=== PATIENT | female | born 1980 | race Caucasian/White ===

== ENCOUNTER 2023-01-19 15:59 | Outpatient (CLI) | payer OTHER, SELFPAY | END 2023-01-19 16:00 | disposition home or self-care (01) | PROVIDERS: PCP Family Medicine; Visit Provider Family Medicine | DX: M54.30 Sciatica, unspecified side (principal) | CPT/HCPCS: 99199 ==

== ENCOUNTER 2023-01-25 16:56 | Outpatient (RCR) | payer OTHER, SELFPAY ==
--- NOTE | 2023-02-01 16:47 | OPREHPOC ---
Outpatient Therapy Plan of Care This is a Multidisciplinary Plan of Care that may contain components documented by all disciplines (PT, OT, and ST.) PT Problem 1 PT Problem #1 Knowledge Deficit PT Goal 1 Goal 1. independent and compliant with HEP to improve tolerance for continued skilled PT and exercises Target Visit 4 PT Problem 2 PT Problem #2 Pain PT Goal 1 Goal 1. decrease pain at worst in the L LE to 3/10 or less 2. reduction of all L LE to the L buttock and no further down the L LE. Target Visit 9 PT Problem 3 PT Problem #3 Impaired Strength PT Goal 1 Goal 1. 5/5 bilateral hip strength 2. 4/5 or better core strength 3. plank for 1 minute on elbows without postural loss Target Visit 9 PT Problem 4 PT Problem #4 Impaired Functional Mobil PT Goal 1 Goal 1. LEFS to display less than 20% functional deficits 2. patient to sit through work day without increased symptoms 3. patient to squat and safely lift 40lbs from floor to improve functional lifting ability. Target Visit 9
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
--- NOTE | 2023-02-01 17:14 | PCPTNOTE ---
patient was a no call no show for her physical therapy appointment today. JOCELYN
--- NOTE | 2023-02-28 17:43 | OPREHPOC ---
Outpatient Therapy Plan of Care This is a Multidisciplinary Plan of Care that may contain components documented by all disciplines (PT, OT, and ST.) PT Problem 1 PT Problem #1 Knowledge Deficit PT Goal 1 Goal 1. independent and compliant with HEP to improve tolerance for continued skilled PT and exercises Target Visit 4 Progress Met PT Problem 2 PT Problem #2 Pain PT Goal 1 Goal 1. decrease pain at worst in the L LE to 3/10 or less 2. reduction of all L LE to the L buttock and no further down the L LE. Target Visit 9 Progress Not Met PT Problem 3 PT Problem #3 Impaired Strength PT Goal 1 Goal 1. 5/5 bilateral hip strength 2. 4/5 or better core strength 3. plank for 1 minute on elbows without postural loss Target Visit 9 Progress Not Met PT Problem 4 PT Problem #4 Impaired Functional Mobil PT Goal 1 Goal 1. LEFS to display less than 20% functional deficits 2. patient to sit through work day without increased symptoms 3. patient to squat and safely lift 40lbs from floor to improve functional lifting ability. Target Visit 9 Progress Not Met
--- NOTE | 2023-02-28 17:44 | PTOPDC ---
Assessment and note entered by Enma Arredondo DPT Evaluation Information Assessment Status Re-evaluation Diagnosis L knee pain, sciatica Onset 01/19/23 Subjective Information Patient reports that since starting PT she has not noticed any improvements in pain. She reports she is feeling about the same with all house hold activities. She reports she has been independent with HEP. Reported Pain Level Pain Score 5,3: Self Report Assessment PT Clinical Summary Patient was seen for 9 visits of skilled PT wtih limited progress towards goals. Patient continues to have low back and LE pain with house hold tasks , siitting at work and ambulation for long periods of time. Patient demonstrated independence with HEP. Recommend patient follow up with MD regarding MRI for further plan of care. Plan of Care PT Services Indicated No
== END 2023-02-28 15:27 | disposition home or self-care (01) ==
LOC: CHSPT 16:56
PROVIDERS: PCP Family Medicine; Visit Provider Family Medicine
DX: M54.30 Sciatica, unspecified side (principal); M25.562 Pain in left knee
CPT/HCPCS: 97014; 97110; 97112; 97140; 97150; 97161; G0283

== ENCOUNTER 2023-02-13 14:29 | Outpatient (NON) | payer OTHER, SELFPAY | END 2023-02-13 14:30 | disposition home or self-care (01) | PROVIDERS: Visit Provider Family Medicine | DX: D36.10 Benign neoplasm of peripheral nerves and autonomic nervous system, unspecified (principal) | CPT/HCPCS: 88305; 88342 ==

== ENCOUNTER 2023-04-22 07:28 | Outpatient (CLI) | payer OTHER, SELFPAY ==
--- NOTE | ~2023-04-22 | MR_ITS ---
EXAMINATION: MR lumbar spine wo con DATE: 04/22/2023 08:12 INDICATION: Sciatica. Pain down left leg. TECHNIQUE: Magnetic resonance imaging (MRI) of the lumbar spine was performed without intravenous con trast. Sequences included sagittal T2-weighted FSE, sagittal T2-weighted FS FSE, sagittal T1-weighted FSE, and axial T2-weighted FSE. COMPARISON: Lumbar spine radiograph 11/18/2005 FINDINGS: There is 7 degrees levocurvature of lumbar spine. Vertebral body heights are normal. There are hemangiomas in T12, L1, and L4 vertebral bodies. There is mildly decreased disc height at L4-L5. The distal spinal cord signal intensity is normal. The conus medullaris is at L1. The following disc levels are specifically discussed: L1-L2: The disc does not extend beyond the endplate margin. There is mild left facet joint osteoarthr itis. There is no neural foraminal stenosis. There is no central canal stenosis. L2-L3: The disc does not extend beyond the endplate margin. There is mild bilateral facet joint osteo arthritis. There is no neural foraminal stenosis. There is no central canal stenosis. L3-L4: The disc does not extend beyond the endplate margin. There is mild bilateral facet joint osteo arthritis. There is no neural foraminal stenosis. There is no central canal stenosis. L4-L5: The disc is bulging. There is moderate bilateral facet joint osteoarthritis. There is mild johanny ateral neural foraminal stenosis. There is mild central canal stenosis. L5-S1: The disc does not extend beyond the endplate margin. There is mild bilateral facet joint osteo arthritis. There is no neural foraminal stenosis. There is no central canal stenosis. IMPRESSION: 1. Mild lumbar spondylosis. Reviewed, dictated and finalized at location A. [facility] IMPRESSION: 1. Mild lumbar spondylosis.
== END 2023-04-22 07:29 | disposition home or self-care (01) ==
LOC: CHSIMG 07:29
PROVIDERS: PCP Family Medicine; Visit Provider Family Medicine
DX: M54.30 Sciatica, unspecified side (principal); M43.06 Spondylolysis, lumbar region
CPT/HCPCS: 72148

== ENCOUNTER 2025-01-22 18:21 | Outpatient (CLI) | payer OTHER, SELFPAY ==
--- OUTSIDE RECORDS SUMMARY | 2018-02-13 10:30 | XMS_ITS | Continuity of Care Document ---
Author Organization [facility] Address [address] [place] [address] Phone Care Team Providers Care Benefits Manager Name Role Phone Natalia Farnsworth MD Unavailable [...] Provider Providers Copied on Encounter DISABILITY EXAMINATION [facility], [address], [place], [address], tel:[phone] [facility] [place] [place] INDIRA MIGUEL HANDS 05/05/17 (chief complaint) Body mass index (BMI) 29.0-29.9, adultLeft carpal tunnel syndromeRight carpal tunnel syndrome 8 Daja Fisher. [address] [place], [place], [id number] . tel:[phone] Family History Family Member Type Diagnosis Age At Onset Son Problem (finding) Alive and well Payers Payer name Insurance type Covered libertarian ID Authoriza tion(s) No Information Social History [...] For Visit From encounter dated '02/13/2018 15:30'. [facility] INDIRA MIGUEL HANDS 05/05/17 (chief complaint) Reason For Referral Reason For Referral No Information History Of Present Illness Encounter Date Complaint History Of Prese nt Illness [facility] INDIRA MIGUEL HANDS 05/05/17 Functional Status [...]
--- OUTSIDE RECORDS SUMMARY | 2025-01-22 18:25 | XMS_ITS | Clinical Summary ---
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 Gender Identity Not on file Sexual Orientation Not on file Plan of Treatment Health Maintenance Due Date Last Done Comments Hepatitis C Virus (HCV) Screening 1979 TdaP Immunization 1979 Hepatitis B Immunization (1 of 3 - 19+ 3-dose series) 1998 Pap Smear 01/09/2000 Human Papillomavirus (HPV) Immunization (1 - 3-dose SCDM series) 2006 Cervical Cancer Screening (CCS) 2009 HPV/Cotest 2009 Cologuard 01/09/2024 Colonoscopy 01/09/2024 Colorectal Cancer Screening 01/09/2024 Immunochemical Fecal Occult Blood 01/09/2024 SARS-COV-2 Immunization ( season) 2024 Influenza Immunization (#1) 2025 Respiratory Syncytial Virus (RSV) Immunization (Adult) (1 - 1-dose 75+ series) 2054 Meningococcal Immunization (ACWY) Aged Out No longer eligible based on patient's age to complete this topic Pneumococcal Immunization Combined Aged Out No longer eligible based on patient's age to complete this topic Rotavirus Immunization Aged Out No lo nger eligible based on patient's age to complete this topic
--- OUTSIDE RECORDS SUMMARY | 2025-01-22 18:25 | XMS_ITS | Clinical Summary ---
Author Organization [facility] Address [address] [place] [address] Care Team Providers Care Pull Up Hand Name Role Phone Jenna Cook RICH Unavailable [phone] Chepe Paulino DO Primary Care Provider Allergies Active Allergy Reactions Criticality Noted Date Comments Promethazine Hives Medium Medications ascorbic acid (VITAMIN C) 100 mg tablet Take 1 tablet (100 mg total) by mouth daily Active acetaminophen (TYLENOL) 500 mg tablet Take 2 tablets (1,000 mg total) by mouth every 6 (six) hours as needed for pain Active SUMAtriptan (IMITREX) 100 mg tablet once as needed 10/16/2019 Active cyanocobalamin (Vitamin B-12) 100 mcg tabletIndicatio ns:Prevention of Vitamin B12 Deficiency Take 1 tablet (100 mcg total) by mouth daily Active biotin 1 mg capsule Take by mouth Active diclofenac (CATAFLAM) 50 mg tablet Take 1 tablet (50 mg total) by mouth 2 (two) times a day 08/08/2023 Active folic acid (FOLVITE) 1 mg tablet Take 1 tablet (1 mg total) by mouth daily 30 tablet 5 08/17/2023 Active methotrexate 2.5 mg tabletIndicatio ns:Rheumatoid Arthritis Take 6 tablets (15 mg total) by mouth every 7 days 72 tablet 08/08/2024 Active Active Problems Problem Noted Date Diagnosed Date Mass of right side of neck 03/13/2021 Dysphonia 03/13/2021 Carpal tunnel syndrome of right wrist 04/11/2018 Overview (04/11/2018): Added automatically from request for surgery [id number] Carpal tunnel syndrome of left wrist 04/05/2018 Overview (04/05/2018): Added automatically from request for surgery [id number] Migraine headache 10/11/2012 Cervical disc disorder with myelopathy 3 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 10/11/2012 Surgical History Surgery Date Site/Laterality Comments CARPAL TUNNEL RELEASE 06/05/2017 - 06/04/2018 Bilateral CERVICAL SPINE SURGERY 06/05/2012 - 06/04/2013 disc replacement MOLE REMOVAL 03/05/2023 - 04/04/2023 BREAST BIOPSY 07/31/2024 Left Medical History Medical History Date Comments Anxiety Cervical disc disease Lumbar stenosis Fibromyalgia, primary Family History Medical History Relation Name Comments Arthritis Father Cancer Father Leukemia Father Arthritis Mother Kidney disease Mother Family histor y of kidney disease - (Added by TW Conv) Cancer Other 1 Cancer - (Added by TW Conv) Diabetes Other 2 Diabetes Mellit us - (Added by TW Conv) Relation Name Status Comments Father Alive Mother Alive Other 1 Other 2 Social History Tobacco Use Types Packs/Day Years Used Date Smoking Tobacco: Former Cigarettes 0.3 1 1 8 - 1998 Passive Smoke Exposure: Never Smokeless Tobacco: Never Tobacco Cessation:Counseling Given: Not Answered Alcohol Use Standard Drinks/Week Comments Yes 2 (1 standard drink = 0.6 oz pur e alcohol) Comments Unknown Sex and Gender Information Value Date Recorded Sex Assigned at Not on file Legal Sex Female 1:20 AM EXHIBITIONS AND COLLECTIONS MANAGER Gender Identity Female 07/16/2024 8:49 AM EXHIBITIONS AND COLLECTIONS MANAGER Sexual Orientation Choose not to disclose 2024 8:49 AM EXHIBITIONS AND COLLECTIONS MANAGER Obstetrics History Last Filed Vital Signs Vital Sign Reading Time Taken Comments Blood Pressure 120/80 08/08/2024 8:08 AM EXHIBITIONS AND COLLECTIONS MANAGER Pulse 71 08/08/2024 8:08 AM EXHIBITIONS AND COLLECTIONS MANAGER Temperature 36.7 C (98 F) 08/08/2024 8:08 AM EXHIBITIONS AND COLLECTIONS MANAGER Respiratory Rate 17 03/12/2021 1:48 PM CDT Oxygen Saturation 97% 08/08/2024 8:08 AM EXHIBITIONS AND COLLECTIONS MANAGER Inhaled Oxygen Concentration - - Weight 88.9 kg (196 lb) 08/08/2024 8:08 AM EXHIBITIONS AND COLLECTIONS MANAGER Height 172.7 cm (5' 8) 08/08/2024 8:08 AM EXHIBITIONS AND COLLECTIONS MANAGER Body Mass Index 29.8 08/08/2024 8:08 AM EXHIBITIONS AND COLLECTIONS MANAGER Plan of Treatment Health Maintenance Due Date Last Done Comments Cervical Cancer Screening 1979 Colon Cancer Screening-Colonoscopy 1979 Depression Screening 1979 Hepatitis C Screening 1979 DTaP/Tdap/Td Vaccine (1 - Tdap) 1990 Hepatitis B Screening 1997 Regular Well Visit/Exam 18-64 1997 Pneumococcal vaccine <65 (1 of 2 - PCV) 1998 Zoster Vaccine (1 of 2) 1998 Covid-19 Vaccine (3 - Pfizer risk series) 09/17/2020 08/20/2020, 07/30/2020 Influenza Vaccine (#1) 2025 Breast Cancer Screening-Mammogram 07/19/2025 07/19/2024, 07/16/2019, 06/13/2019 HPV Vaccines Aged Out No longer eligi ble based on patient's age to complete this topic Medical Devices Implanted Type Area Chemical Analytical Sampler Device Identifier Shelf Expiration Date Model / Serial / Lot [employer] Peripheral V[employer] Senomark Ultracor Bard 14ga 10cm Rigid Needle 1 Microfiber Pad [id number] - [id number] Implanted:Qty: 1 on 07/31/2024 at [facility] [employer] [id number] / / Procedures Procedure Name Priority Date/Time Associated Diagnosis Comments DIAGNOSTIC MAMMOGRAM BILATERAL W GERALD Schedule Routine, Read Routine (OP Routine) 07/19/2024 10:17 AM EXHIBITIONS AND COLLECTIONS MANAGER Mass of left breast, unspecified quadrant from Last 3 Months or Most Recently Relevant to Health Maintenance Results * (ABNORMAL) Diagnostic Mammogram Bilateral W Gerald (07/19/2024 10:17 AM EXHIBITIONS AND COLLECTIONS MANAGER) Anatomical Region Laterality Modality Breast Bilateral Mammography 07/19/2024 12:2 3 PM EXHIBITIONS AND COLLECTIONS MANAGER Impressions 07/19/2024 12:23 PM EXHIBITIONS AND COLLECTIONS MANAGER 1. Palpable mass in the left breast corresponds to hypoechoic mass seen on ultrasound, new since prior, recommend ultrasound-guided biopsy. 2. Focal asymmetry corresponds to multiple oval masses seen on ultrasound as described above, some representing complicated cysts or fibroadenomas that are probably benign, recommend short-term follow-up. OVERALL FINAL ASSESSMENT: SUSPICIOUS. BI-RADS Category 4B: Moderate suspicion for malignancy. RECOMMENDATION: Ultrasound-guided biopsy of left breast mass at 11:00. Short-term follow-up of focal asymmetry and oval masses in the upper outer quadrant of the right breast as above. Findings and recommendations were communicated to the patient at the time of this examination by Dr. Morin. Nurse navigator will meet with the patient and schedule the biopsy. Electronically signed by: Shabana Morin M.D. Narrative 07/19/2024 12:23 PM EXHIBITIONS AND COLLECTIONS MANAGER EXAMINATION: BILATERAL DIGITAL DIAGNOSTIC MAMMOGRAM INCLUDING CAD AND BILATERAL DIGITAL BREAST TOMOSYNTHESIS; BILATERAL BREAST SONOGRAM HISTORY: Palpable mass left breast COMPARISON: 07/16/2019, 06/13/2019 06/07/2006 TECHNIQUE: Full field digital mammographic views of BOTH breast were performed, including computer aided detection (CAD) and BILATERAL digital breast tomosynthesis (DBT). Directed ultrasound evaluation of BILATERAL breast was performed. BREAST PARENCHYMAL COMPOSITION: The breasts are extremely dense, which lowers the sensitivity of mammography. MAMMOGRAM FINDINGS: Right: Focal asymmetry is seen in the upper outer right breast that includes multiple oval masses, located 8 cm from the nipple, persists in spot images. Left: Oval mass is seen in the left breast at 11:00, 5 cm from the nipple, corresponding to the palpable abnormality, new since prior exam. Asymmetry in the left breast, slightly posterior to the palpable abnormality partly spreads out in spot images. SONOGRAM FINDINGS: Focused ultrasound of the right breast: At 9:00, 9 cm from the nipple there is an oval, parallel, hypoechoic mass with minimal posterior acoustic enhancement and no vascularity measuring 0.9 x 0.7 x 0.4 cm may represent a small fibroadenoma or complicated cyst. Probably benign. At 9:00, 7 cm from the nipple, is an oval, mixed echogenicity, parallel mass with posterior acoustic enhancement and no internal vascularity measuring 1.4 x 0.9 x 1.5 cm, may represent a fibroadenoma. Probably benign. At 9:00, 6 cm from the nipple there is an 0.8 x 0.9 x 0.3 cm cyst that is benign. At 10:00, 7 cm from the nipple there is a 0.9 x 0.9 x 0.5 cm hypoechoic oval mass, parallel with posterior acoustic enhancement and no vascularity, may represent a complicated cyst or fibroadenoma. Probably benign. At 10:00, 7 cm from the nipple, there is a 2nd oval, parallel, hypoechoic mass with posterior acoustic enhancement measuring 1 x 0.6 x 0.8 cm likely representing complicated cyst versus fibroadenoma. Probably benign. At 10:30, 5 cm from the nipple there is a 1.2 x 1.7 x 0.7 cm complicated cyst. Probably benign. At 11:00, 4 cm from the nipple, is an oval, hypo to isoechoic mass with posterior enhancement measuring 0.9 x 0.8 x 2.7 cm likely representing a fibroadenoma. Right axilla is within normal limits. Left breast: At 11:00, 5 cm from the nipple, there is a lobulated, hypoechoic, 4.2 x 3.5 x 1.7 cm mass corresponding to the mammographic finding with an adjacent 0.7 x 0.4 cm mass with similar characteristics located 2 mm separate from the larger mass. Left axilla is within normal limits. Shabana Tim NP IMG MAMMO PROCEDURES Rhiannon l Result from Last 3 Months or Most Recently Relevant to Health Maintenance Insurance [facility] [employer] [facility] H[facility]/PPO Address: [address] [address] [place] [address] ANTHEM ACCESS BLUE ACCESS OOS [facility] [employer] HMO/PPO Address: [address] [address] [place] [address] Care Teams Pull Up Hand Relationship Specialty Start Date End Date Chepe Paulino DO [address] [place] [address] PCP - General Family Medicine 08/08/24 Jenna Cook PA [address] [place] [address] Physician Motion Study Technician Physician Motion Study Technician 03/21/22
--- OUTSIDE RECORDS SUMMARY | 2025-01-22 18:25 | XMS_ITS | Clinical Summary ---
Author Organization [facility] Address [address] [place] [address] Care Team Providers Care Solar Crew Member Name Role Phone Unavailable Primary Care Provider Unavailabl e Allergies Active Allergy Reactions Criticality Noted Date Comments Promethazine Hives 02/05/2018 Medications ondansetron 4 MG disintegrating tablet Take 1 tablet (4 mg total) by mouth every 8 (eight) hours as needed for Nausea. 20 tablet 9 Active METAXALONE 800 MG tabletIndications:L ow back pain TAKE 1 TABLET(800 MG) BY MOUTH THREE TIMES DAILY NEEDED 30 tablet 1 Active TRAZODONE 50 MG tabletIndications:I nsomnia, unspecified type TAKE 2 TABLETS BY MOUTH EVERY DAY AT BEDTIME NEEDED 180 tablet 1 Active acetaminophen 500 MG tablet Take 1,000 mg by mouth every 6 (six) hours as needed. Active Ascorbic Acid 100 MG Tab Take 100 mg by mouth daily. Active Multiple Vitamin (MULTIVITAMIN OR) Ac tive SUMAtriptan 100 MG tabletIndications:C hronic migraine without aura without status migrainosus, not intractable Take 1 tablet (100 mg total) by mouth 2 (two) times daily as needed. Take 1 tablet at onset of symptoms, may take 1 tablet 2 hours later. Max of 2 tablets in 24-hour period. 30 tablet 2 Active topiramate (TOPAMAX) 50 MG TabIndications:Migr aines TAKE 1 TABLET BY MOUTH EVERY MORNING AND 2 TABLETS EVERY EVENING 270 tablet 3 Active diclofenac EC (VOLTAREN) 50 MG tabletIndications:C hronic neck pain TAKE 1 TABLET BY MOUTH TWICE A DAY 180 tablet 3 Active gabapentin (NEURONTIN) 600 MG tabletIndications:R ight shoulder pain, unspecified chronicity,Low back pain TAKE 1 TABLET BY MOUTH EVERY 8 HOURS 270 tablet 3 Active Active Problems Problem Noted Date Diagnosed Date Chronic neck pain 03/02/2022 Rib pain on left side 03/02/2022 Multiple joint pain 03/02/2022 Pain of finger of left hand 03/02/2022 Acute pain of right shoulder 03/02/2022 Chronic low back pain 06/08/2021 Dysphonia 03/13/2021 Cervical disc disorder with myelopathy 3 Migraine headache 10/11/2012 Resolved Problems Problem Noted Date Diagnosed Date Resolved Date Carpal tunnel syndrome of right wrist 04/11/2018 06/08/2021 Overview (06/08/2021): Added automatically from request for surgery [id number] Carpal tunnel syndrome of left wrist 04/05/2018 06/08/2021 Overview (06/08/2021): Added automatically from request for surgery [id number] 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 10/11/2012 06/08/2021 Immunizations Immunization Administration Dates Next Due PFIZER COVID-19 (ORIGINAL FO RMULATION, PURPLE CAP) mRNA, LNP-S, PF, 30 MCG/0.3 ML DOSE 07/30/2020 Family History Relation Status Comments Father Alive Mother Alive Social History Tobacco Use Types Packs/Day Years Used Date Smoking Tobacco: Never Smokeless Tobacco: Never Tobacco Cessation:Counseling Given: No Alcohol Use Standard Drinks/Week Comments Yes 0 (1 standard drink = 0.6 oz pur e alcohol) socially PHQ-2 Answer Date Recorded PHQ-2 Score - If the patient scores above 3, please move on to questions 3-9 2 06/08/2021 Comments No Sex and Gender Information Value Date Recorded Sex Assigned at Not on file Legal Sex Female 8:30 PM CDT Gender Identity Not on file Sexual Orientation Not on file Last Filed Vital Signs Vital Sign Reading Time Taken Comments Blood Pressure 138/80 03/02/2022 3:48 PM CDT Pulse 65 03/02/2022 3:48 PM CDT Temperature 37.4 C (99.3 F) 03/02/2022 3:48 PM CDT Respiratory Rate 15 03/02/2022 3:48 PM CDT Oxygen Saturation 98% 03/02/2022 3:48 PM CDT Inhaled Oxygen Concentration - - Weight 90.1 kg (198 lb 9.6 oz) 03/02/2022 3:48 P M CDT Height 170.2 cm (5' 7) 06/08/2021 4:13 PM CLINICAL LAB SPECIALIST Body Mass Index 31.11 06/08/2021 4:13 PM CLINICAL LAB SPECIALIST Plan of Treatment Health Maintenance Due Date Last Done Comments Cervical Cancer Screening Pa p Smear (Age 30 to 64) Every 3 Years 1979 Colorectal Cancer Screening Colonoscopy (10 Years) 1979 Annual Physical 1982 Hepatitis C 1997 DTaP, Tdap and Td Vaccines ( 1 - Tdap) 1998 Hepatitis B Vaccines (1 of 3 - 19+ 3-dose series) 1998 Cervical Cancer Screening Pa p with HPV Testing (Age 30 to 64) Every 5 Years 2009 Cervical Cancer Screening wi th HPV 2009 Mammogram Screening 2019 COVID-19 Vaccine (3 - 2023-2 5 season) 2024 08/20/2020, 07/30/2020 PHQ-2 (Physician [facility]) 06/05/2024 HPV Vaccines Aged Out No longer eligi ble based on patient's age to complete this topic Meningococcal B Vaccine Aged Out No l onger eligible based on patient's age to complete this topic Meningococcal Vaccine Aged Out No anna anoop eligible based on patient's age to complete this topic Pneumococcal Vaccine: Pediatrics (0 to 5 Years) and At-Risk Patients (6 to 49 Years) Aged Out No longer eligible b ased on patient's age to complete this topic RSV Immunizations Under 20 Months Aged Out No longer eligible b ased on patient's age to complete this topic Insurance [facility]
[2025-01-22 19:01] LABS: Hematocrit 41.4 % (35.0-49.0); Hemoglobin 13.3 g/dL (12.0-15.0); Immature Granulocyte Percent A 0.3 % (0.0-0.0); Lymphocytes Absolute Auto 3.89 K/mm3 (1.10-4.50); Mean Corpuscular HGB Conc 32.1 g/dL (32-36); Mean Corpuscular Hemoglobin 30.3 pg (27.0-31.0); Mean Corpuscular Volume 94.3 fL (78.0-102.0); Nucleated Red Blood Cells Absolute Auto 0.00 K/mm3 (0.00-0.00); Nucleated Red Blood Cells Perc 0.0 % (0-0.0); Platelet Count Result 358 K/mm3 (150-420); Red Blood Count 4.39 M/mm3 (4.20-5.40); White Blood Count 13.1 K/mm3 (4.8-10.8)
[2025-01-22 19:12] LABS: Alanine Aminotransferase 22 U/L (6-35); Albumin Level 4.9 g/dL (3.5-5.1); Alkaline Phosphatase 75 U/L (38-126); Anion Gap 11 mmol/L (4-12); Aspartate Amino Transferase 24 U/L (14-36); Bilirubin,Total 0.3 mg/dL (0.2-1.3); Blood Urea Nitrogen 11 mg/dL (7-17); Calcium 10.2 mg/dL (8.4-10.2); Carbon Dioxide 25 mmol/L (22-30); Chloride 104 mmol/L (98-107); Estimated Glomerular Filt Rate > 60; Glucose 73 mg/dL (65-110); Osmolality Calculated 288 mOsm/kg (285-295); Potassium 4.0 mmol/L (3.4-5.0); Sodium 140 mmol/L (137-145); Total Protein 7.8 g/dL (6.3-8.2)
== END 2025-01-22 18:22 | disposition home or self-care (01) ==
LOC: CHSLAB 18:23
PROVIDERS: PCP Family Medicine
DX: Z79.899 Other long term (current) drug therapy (principal)
CPT/HCPCS: 36415; 80053; 85025

== ENCOUNTER 2025-02-27 11:45 | Outpatient (CLI) | payer OTHER, SELFPAY ==
--- NOTE | ~2025-02-27 | MR_ITS ---
EXAMINATION: MR lumbar spine wo con DATE: 02/27/2025 12:11 INDICATION: Sciatica TECHNIQUE: Magnetic resonance imaging (MRI) of the lumbar spine was performed without intravenous contrast. Sequences included sagittal T2-weighted FSE, sagittal T2-weighted FS FSE, sagittal T1-weighted FSE, and axial T2-weighted FSE. COMPARISON: 04/22/2023 FINDINGS: 9 degrees lumbar levocurvature. Sagittal alignment is normal. Vertebral body heights are normal. There are several scattered T1 hyperintense hemangiomas, the most prominent at T12, L1 and L4. Interval progression of moderate to severe right-sided predominant disc height loss at L4-L5 with associated mild T2 hyperintense fibrovascular degenerative endplate changes. Bone marrow signal is otherwise unremarkable. Mild disc desiccation and mild disc height loss at L3- L4. The conus medullaris terminates at L1-L2. There is normal signal in the caudal spinal cord. Paravertebral soft tissues are unremarkable. The following disc levels are specifically discussed: T12-L1 through L2-L3: The disc does not extend beyond the endplate margin. There is mild bilateral facet joint osteoarthritis. There is no neural foraminal stenosis. There is no central canal stenosis. L3-L4: Small bilateral foraminal zone disc protrusions. There is mild bilateral facet joint osteoarthritis. There is mild right and minimal left neural foraminal stenosis. There is no central canal stenosis. L4-L5: Disc is bulging with annular fissure. There is hypertrophy of the ligamentum flavum. There is moderate bilateral facet joint osteoarthritis. There is mild left and moderate right neural foraminal stenosis. There is mild central canal stenosis. There is also narrowing of the left and right lateral recesses. Mass effect upon the traversing bilateral L5 nerve roots. L5-S1: The disc does not extend beyond the endplate margin. There is mild bilateral facet joint osteoarthritis. There is mild bilateral neural foraminal stenosis. There is no central canal stenosis. IMPRESSION: 1. Mild lumbar levocurvature with interval progression of moderate to severe spondylosis at L4-L5 and otherwise unchanged minimal to mild spondylosis in the remainder of the lumbar spine. Reviewed, dictated and finalized at location A. IMPRESSION: 1. Mild lumbar levocurvature with interval progression of moderate to severe sp ondylosis at L4-L5 and otherwise unchanged minimal to mild spondylosis in the r emainder of the lumbar spine.
== END 2025-02-27 11:46 | disposition home or self-care (01) ==
LOC: MICIMG 11:46
PROVIDERS: PCP Nurse Practitioner Family; Visit Provider Nurse Practitioner Family
DX: M41.86 Other forms of scoliosis, lumbar region (principal); M47.816 Spondylosis without myelopathy or radiculopathy, lumbar region; M54.30 Sciatica, unspecified side
CPT/HCPCS: 72148

== ENCOUNTER 2025-04-14 17:36 | Outpatient (CLI) | payer OTHER, SELFPAY ==
--- NOTE | ~2025-04-14 | XR_ITS ---
XR chest 2V HOSTORY: Z01.818 - Encounter for other preprocedural examination COMPARISON:[ None] FINDINGS: Frontal and lateral views of the chest were obtained. The lungs are clear. The heart size is normal in size. Pulmonary vasculature is unremarkable. Osseous structures are intact. IMPRESSION: No acute lung findings.] [ ] Reviewed, dictated and finalized at location S. [facility] LANGUAGE SPECIALIST
--- OUTSIDE RECORDS SUMMARY | 2025-04-14 17:42 | XMS_ITS | Clinical Summary ---
Author Organization [facility] Address [address] [place] [address] Care Team Providers Care Chute Tapper Name Role Phone Jenna Cook RICH Unavailable [phone] Chepe Paulino DO Primary Care Provider [...] methotrexate 2.5 mg tabletIndicatio ns:Rheumatoid Arthritis Take 8 tablets (20 mg total) by mouth every 7 days 96 tablet 02/13/2025 Active Active Problems Problem Noted Date Diagnosed Date Mass of right side of neck 03/13/2021 Dysphonia 03/13/2021 Carpal tunnel syndrome of right wrist 04/11/2018 Overview (04/11/2018): Added automatically from request for surgery [id number] Carpal tunnel syndrome of left wrist 04/05/2018 Overview (04/05/2018): Added automatically from request for surgery [id number] Migraine headache 10/11/2012 Cervical disc disorder with myelopathy 3 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 10/11/2012 Encounters Date Type Department Care Team Description 03/21/2025 2:15 PM CDT - 03/21/2025 11:59 PM CDT Hospital Encounter [facility] - Imaging [address] [place] [address] Other abnormal and inconclusive findings on diagnostic imaging of breast Discharge Disposition: Discharge to home or self care 03/21/2025 2:15 PM CDT - 03/21/2025 11:59 PM CDT Hospital Encounter [facility] - Imaging [address] [place] [address] Other abnormal and inconclusive findings on diagnostic imaging of breast Discharge Disposition: Discharge to home or self care 02/13/2025 8:20 AM CDT Lab [facility] [address] [place] [address] [address] [place] [address] Rheumatoid arthritis with negative rheumatoid factor, involving unspecified site (HCC); Leukocytosis, unspecified type 02/13/2025 8:00 AM CDT Office Visit [facility] Medicine Rheumatology [address] [place] [address] Alia Benjamin NP Rheumatoid arthritis with negative rheumatoid factor, involving unspecified site (HCC) (Primary Dx); High risk medication use; Leukocytosis, unspecified type 01/22/2025 Orders Only [facility] Scanning, Provider from Last 3 Months Surgical History Surgery Date Site/Laterality Comments CARPAL TUNNEL RELEASE 06/05/2017 - 06/04/2018 Bilateral CERVICAL SPINE SURGERY 06/05/2012 - 06/04/2013 disc replacement MOLE REMOVAL 03/05/2023 - 04/04/2023 BREAST BIOPSY 07/31/2024 Left Medical History Medical History Date Comments Anxiety Cervical disc disease Lumbar stenosis Fibromyalgia, primary Family History Medical History Relation Name Comments Arthritis Father Cancer Father Leukemia Father Breast cancer Maternal Grandmother Arthritis Mother Kidney disease Mother Family histor y of kidney disease - (Added by TW Conv) Cancer Other 1 Cancer - (Added by TW Conv) Diabetes Other 2 Diabetes Mellit us - (Added by TW Conv) Relation Name Status Comments Father Alive Maternal Grandmother Mother Alive Other 1 Other 2 Social History Tobacco Use Types Packs/Day Years Used Date Smoking Tobacco: Former Cigarettes 0.3 1 1 998 - 1998 Passive Smoke Exposure: Never Smokeless Tobacco: Never Tobacco Cessation:Counseling Given: Not Answered Alcohol Use Standard Drinks/Week Comments Yes 2 (1 standard drink = 0.6 oz pur e alcohol) Comments No Sex and Gender Information Value Date Recorded Sex Assigned at Not on file Legal Sex Female 1:20 AM MANAGER SUPPLY Gender Identity Female 07/16/2024 8:49 AM MANAGER SUPPLY Sexual Orientation Choose not to disclose 2024 8:49 AM MANAGER SUPPLY Obstetrics History Para Term AB IAB SAB Ectopic Multiple Livin g Live Births 1 1 Date Outcome GA Total Labor Labor/2nd/3rd Weight Sex Type Anes PTL Alexa A1 A5 Name Clin Last Filed Vital Signs Vital Sign Reading Time Taken Comments Blood Pressure 127/80 02/13/2025 7:51 AM CDT Pulse 63 02/13/2025 7:51 AM CDT Temperature 36.6 C (97.9 F) 02/13/2025 7:51 AM CDT Respiratory Rate 17 03/12/2021 1:48 PM CDT Oxygen Saturation 100% 02/13/2025 7:51 AM CDT Inhaled Oxygen Concentration - - Weight 90.2 kg (198 lb 12.8 oz) 02/13/2025 7:51 AM CDT Height 172.7 cm (5' 8) 02/13/2025 7:51 AM CDT Body Mass Index 30.23 02/13/2025 7:51 AM CDT Plan of Treatment Health Maintenance Due Date [...] 09/17/2020 08/20/2020, 07/30/2020 Influenza Vaccine (#1) 2025 03/06/2014 Breast Cancer Screening-Mammogram 07/19/2025 07/19/2024, 07/16/2019, 06/13/2019 HPV Vaccines Aged Out No longer eligi ble based on patient's age to complete this topic Medical Devices Implanted Type Area Respiratory Manager Device Identifier Shelf Expiration Date Model / Serial / Lot [employer] Senomark Ultracor Bard 14ga 10cm Rigid Needle 1 Microfiber Pad [id number] - [id number] Implanted:Qty: 1 on 07/31/2024 at [facility] [employer] [id number] / / Procedures Procedure Name Priority Date/Time Associated Diagnosis Comments US BREAST RIGHT LIMITED Schedule Routine, Read Routine (OP Routine) 03/21/2025 3:27 PM CDT Other abnormal and inconclusive findings on diagnostic imaging of breast DIAGNOSTIC MAMMOGRAM RIGHT W GERALD Schedule Routine, Read Routine (OP Routine) 03/21/2025 2:33 PM CDT Other abnormal and inconclusive findings on diagnostic imaging of breast DIFFERENTIAL AUTO Routine 02/13/2025 9:4 1 AM CDT Leukocytosis, unspecified type CBC WITH AUTO DIFFERENTIAL Routine 02/13/2025 9:41 AM CDT Leukocytosis, unspecified type CRP (ACUTE PHASE) Routine 02/13/2025 9:4 1 AM CDT Rheumatoid arthritis with negative rheumatoid factor, involving unspecified site (HCC) ERYTHROCYTE SEDIMENTATION RATE Routine 02/13/2025 9:41 AM CDT Rheumatoid arthritis with negative rheumatoid factor, involving unspecified site (HCC) SCAN - LABS 01/22/2025 DIAGNOSTIC MAMMOGRAM BILATERAL W GERALD Schedule Routine, Read Routine (OP Routine) 07/19/2024 10:17 AM MANAGER SUPPLY Mass of left breast, unspecified quadrant from Last 3 Months or Most Recently Relevant to Health Maintenance Results * US Breast Right Limited (03/21/2025 3:27 PM CDT) Anatomical Region Laterality Modality Breast Right Ultrasound 03/21/2025 3:44 PM CDT Impressions 03/21/2025 3:44 PM CDT 1. Multiple focal asymmetries in the upper outer quadrant of the right breast are similar to before. This is probably benign. Recommend follow-up with a diagnostic right mammogram in 4-5 months. The patient will be due for her annual exam at that time. 2. Hypoechoic masses in the right breast at 9:00 at 9 and 7 cm from the nipple and at 11:00, 4 cm from the nipple are probably benign and unchanged. Recommend follow-up with right breast ultrasound in 4-5 months. 3. Complicated cysts in the right breast at 10:00 are probably benign. Recommend follow-up with right breast ultrasound in 4-5 months. 4. Management of any palpable abnormality should be based on clinical grounds. OVERALL FINAL ASSESSMENT: BI-RADS Category 3: Probably Benign. RECOMMENDATION: Recommend follow-up diagnostic breast imaging in 4-5 months with a bilateral diagnostic mammogram and right breast ultrasound. The patient will be due for her annual exam at that time. (July 2025) Electronically signed by: Pamela Escamilla M.D. Narrative 03/21/2025 3:44 PM CDT EXAMINATION: RIGHT UNILATERAL DIGITAL DIAGNOSTIC MAMMOGRAM AND DIGITAL BREAST TOMOSYNTHESIS, right breast ultrasound HISTORY: Six-month follow-up COMPARISON: Priors dating back to 06/13/2019 TECHNIQUE: Full field digital mammographic views of the RIGHT breast were performed, including computer aided detection (CAD) and digital breast tomosynthesis (DBT). BREAST PARENCHYMAL COMPOSITION: The breasts are heterogeneously dense, which may obscure small masses. MAMMOGRAM FINDINGS: There are multiple focal asymmetries in the upper outer quadrant of the right breast similar to before. Right breast ultrasound: Focused ultrasound was performed of the right breast from 9-11 o'clock. At 9:00 9 cm from the nipple and 7 cm from the nipple are oval hypoechoic masses that are unchanged. These are probably benign fibroadenomas. At 10:00, 7 cm from the nipple are 2 complicated cysts adjacent to one another. These are unchanged and probably benign. At 11:00, 4 cm from the nipple is a hypoechoic mass that is probably benign and likely a fibroadenoma. This is unchanged. us Chepe Paulino DO IMG MAMMO PROCEDURES F inal Result * Diagnostic Mammogram Right W Gerald (03/21/2025 2:33 PM CDT) Anatomical Region Laterality Modality Breast Right Mammography 03/21/2025 3:44 PM CDT Impressions 03/21/2025 3:44 PM CDT 1. Multiple focal asymmetries in the upper outer quadrant of the right breast are similar to before. This is probably benign. Recommend follow-up with a diagnostic right mammogram in 4-5 months. The patient will be due for her annual exam at that time. 2. Hypoechoic masses in the right breast at 9:00 at 9 and 7 cm from the nipple and at 11:00, 4 cm from the nipple are probably benign and unchanged. Recommend follow-up with right breast ultrasound in 4-5 months. 3. Complicated cysts in the right breast at 10:00 are probably benign. Recommend follow-up with right breast ultrasound in 4-5 months. 4. Management of any palpable abnormality should be based on clinical grounds. OVERALL FINAL ASSESSMENT: BI-RADS Category 3: Probably Benign. RECOMMENDATION: Recommend follow-up diagnostic breast imaging in 4-5 months with a bilateral diagnostic mammogram and right breast ultrasound. The patient will be due for her annual exam at that time. (July 2025) Electronically signed by: Pamela Escamilla M.D. Narrative 03/21/2025 3:44 PM CDT EXAMINATION: RIGHT UNILATERAL DIGITAL DIAGNOSTIC MAMMOGRAM AND DIGITAL BREAST TOMOSYNTHESIS, right breast ultrasound HISTORY: Six-month follow-up COMPARISON: Priors dating back to 06/13/2019 TECHNIQUE: Full field digital mammographic views of the RIGHT breast were performed, including computer aided detection (CAD) and digital breast tomosynthesis (DBT). BREAST PARENCHYMAL COMPOSITION: The breasts are heterogeneously dense, which may obscure small masses. MAMMOGRAM FINDINGS: There are multiple focal asymmetries in the upper outer quadrant of the right breast similar to before. Right breast ultrasound: Focused ultrasound was performed of the right breast from 9-11 o'clock. At 9:00 9 cm from the nipple and 7 cm from the nipple are oval hypoechoic masses that are unchanged. These are probably benign fibroadenomas. At 10:00, 7 cm from the nipple are 2 complicated cysts adjacent to one another. These are unchanged and probably benign. At 11:00, 4 cm from the nipple is a hypoechoic mass that is probably benign and likely a fibroadenoma. This is unchanged. us Chepe Nguyen Lora DO IMG MAMMO PROCEDURES F inal Result * Differential, auto (02/13/2025 9:41 AM CDT) Neutrophil abs 6.01 1.50 - 6.50 K/cumm Imm gran abs 0.02 0.00 - 0.10 K/cumm [facility] Lymphocyte abs 2.26 0.80 - 3.30 K/cumm [facility] Monocyte abs 0.62 0.20 - 0.80 K/cumm [facility] Eosinophil abs 0.09 0.00 - 0.50 K/cumm [facility] Basophil abs 0.05 0.00 - 0.10 K/cumm [facility] Neutrophil pct 66.3 % [facility] Comment: Interpretive Data Percent cell count reference ranges are not reported, since discordance with absolute values may lead to misinterpretation of CBC data. Current Interpretive Data was last revised on 2017. Imm gran pct 0.2 % [facility] Comment: Interpretive Data Percent cell count reference ranges are not reported, since discordance with absolute values may lead to misinterpretation of CBC data. Current Interpretive Data was last revised on 2017. Lymphocyte pct 25.0 % [facility] Comment: Interpretive Data Percent cell count reference ranges are not reported, since discordance with absolute values may lead to misinterpretation of CBC data. Current Interpretive Data was last revised on 2017. Monocyte pct 6.9 % [facility] Comment: Interpretive Data Percent cell count reference ranges are not reported, since discordance with absolute values may lead to misinterpretation of CBC data. Current Interpretive Data was last revised on 2017. Eosinophil pct 1.0 % [facility] Comment: Interpretive Data Percent cell count reference ranges are not reported, since discordance with absolute values may lead to misinterpretation of CBC data. Current Interpretive Data was last revised on 2017. Basophil pct 0.6 % [facility] Comment: Interpretive Data Percent cell count reference ranges are not reported, since discordance with absolute values may lead to misinterpretation of CBC data. Current Interpretive Data was last revised on 2017. Blood 02/13/2025 9:41 AM CDT 02/13/2025 11:12 AM CDT Alia Benjamin INFANT ROOM TEACHER LAB BLOOD ORDERABLES Final Result [facility] [place] [address] * CBC with auto differential (02/13/2025 9:41 AM CDT) WBC 9.05 3.80 - 9.90 K/cumm Hgb 13.2 11.9 - 15.5 g/dL [facility] Hct 40.4 35.6 - 45.5 % [facility] Plt 381 150 - 400 K/cumm [facility] MPV 10.5 9.1 - 12.3 fL [facility] RBC 4.25 3.90 - 5.20 M/cumm [facility] MCV 95.1 81.3 - 96.4 fL [facility] MCH 31.1 27.1 - 33.3 pg [facility] MCHC 32.7 32.3 - 35.7 g/dL [facility] RDW CV 13.7 11.1 - 14.9 % [facility] RDW SD 47.0 35.7 - 48.1 fL [facility] NRBC abs 0.00 0.00 - 0.01 K/cumm [facility] Blood 02/13/2025 9:41 AM CDT 02/13/2025 11:12 AM CDT us Alia Benjamin NP LAB BLOOD ORDERABLES Final Result Performing Organization Address City/[facility] Co de Phone Number [facility] [place] [address] * (ABNORMAL) Erythrocyte sedimentation rate (02/13/2025 9:41 AM CDT) Erythrocyte sedimentation rate 22(H) 1 - 20 mm/hr Blood 02/13/2025 9:41 AM CDT 02/13/2025 11:12 AM CDT us Alia Benjamin INFANT ROOM TEACHER LAB BLOOD ORDERABLES Final Result Performing Organization Address [facility] Co de Phone Number [facility] [place] [place] [address] * CRP (acute phase) (02/13/2025 9:41 AM CDT) Pathologist [facility] [place] CRP 9.7 <=10.0 mg/L Blood 02/13/2025 9:41 AM CDT 02/13/2025 11:11 AM CDT us Alia Benjamin NP LAB BLOOD ORDERABLES Final Result Performing Organization Address [facility] Co de Phone Number [facility] [place] [place] [address] * SCAN - LABS (01/22/2025) us Provider Scanning Final Result * (ABNORMAL) Diagnostic Mammogram Bilateral W Gerald (07/19/2024 10:17 AM MANAGER SUPPLY) Anatomical Region Laterality Modality Breast Bilateral Mammography 07/19/2024 12:2 3 PM MANAGER SUPPLY Impressions 07/19/2024 12:23 PM MANAGER SUPPLY 1. Palpable mass in the left breast [...] Shabana Morin M.D. Narrative 07/19/2024 12:23 PM MANAGER SUPPLY EXAMINATION: BILATERAL DIGITAL DIAGNOSTIC MAMMOGRAM INCLUDING CAD [...] Left axilla is within normal limits. Shabana Tmi NP IMG MAMMO PROCEDURES Rhiannon l Result from Last 3 Months or Most Recently Relevant to Health Maintenance Insurance [facility] CHO[facility] [employer] ANTHEM ACCESS Member Subscriber Plan / Payer (Ef fective 2018-Present) Name:Domonique Alexander Relation to Subscriber:Self Name:DOMONIQUE ALEXANDER Payer ID:[id number] ([facility]) Type:Propertybase Address: [phone] ACCESS OOS [facility] CHOICE PLUS Care Teams Chute Tapper Relationship Specialty Start Date End Date Chepe Paulino DO [address] [place] [address] PCP - General Family Medicine 08/08/24 Jenna Cook PA [address] [place] [id number] Physician X Ray Equipment Servicer Physician X Ray Equipment Servicer 03/21/22
--- OUTSIDE RECORDS SUMMARY | 2025-04-14 17:42 | XMS_ITS | Clinical Summary ---
Author Organization [facility] Care Team Providers Care Nicker And Breaker Name Role Phone Unavailable Primary Care Provider Unavailabl e Social History Tobacco Use Types Packs/Day Years Used Date Smoking Tobacco: Never Assessed Comments Unknown Sex and Gender Information Value Date Recorded Sex Assigned at Not on file Legal Sex Female 12:01 PM DIRECTOR TELEVISION Gender Identity Not on file Sexual Orientation Not on file Plan of Treatment Health Maintenance Due Date Last Done Comments Hepatitis C Virus (HCV) Screening 1979 TdaP Immunization 1979 Hepatitis B Immunization (1 of 3 - 19+ 3-dose series) 1998 Pap Smear 01/09/2000 Cervical Cancer Screening (CCS) 2009 HPV/Cotest 2009 Cologuard 01/09/2024 Colonoscopy 01/09/2024 Colorectal Cancer Screening 01/09/2024 Immunochemical Fecal Occult Blood 01/09/2024 Influenza Immunization (#1) 2025 SARS-COV-2 Immunization ( season) 2025 Respiratory Syncytial Virus (RSV) Immunization (Adult) (1 - 1-dose 75+ series) 2054 Human Papillomavirus (HPV) Immunization Aged Out No longer eligible b ased on patient's age to complete this topic Meningococcal Immunization (ACWY) Aged Out No longer eligible based on patient's age to complete this topic Pneumococcal Immunization Combined Aged Out No longer eligible based on patient's age to complete this topic Rotavirus Immunization Aged Out No lo nger eligible based on patient's age to complete this topic
--- OUTSIDE RECORDS SUMMARY | 2025-04-14 17:42 | XMS_ITS | Clinical Summary ---
Author Organization [facility] Address [address] [place] [address] Care Team Providers Care Aco Coordinator Name Role Phone Unavailable Primary Care Provider [...] (06/08/2021): Added automatically from request for surgery [id number] Carpal tunnel syndrome of left wrist 04/05/2018 06/08/2021 Overview (06/08/2021): Added automatically from request for surgery [id number] Herniation of cervical inter vertebral disc without [...] 170.2 cm (5' 7) 06/08/2021 4:13 PM HAND I BLOCKER Body Mass Index 31.11 06/08/2021 4:13 PM HAND I BLOCKER Plan of Treatment Health Maintenance Due Date [...] wi th HPV 2009 Mammogram Screening 2019 PHQ-2 (Physician Bradley) 06/05/2024 COVID-19 Vaccine (3 - 2024-2 6 season) 2025 08/20/2020, 07/30/2020 Influenza Adult (#1) 2025 Hepatitis A Vaccines Aged Out No long er eligible based on patient's age to complete [...] patient's age to complete this topic Insurance [facility]
[2025-04-14 18:18] LABS: Hematocrit 38.2 % (35.0-49.0); Hemoglobin 12.3 g/dL (12.0-15.0); Immature Granulocyte Percent A 0.2 % (0.0-0.0); Lymphocytes Absolute Auto 3.01 K/mm3 (1.10-4.50); Mean Corpuscular HGB Conc 32.2 g/dL (32-36); Mean Corpuscular Hemoglobin 30.4 pg (27.0-31.0); Mean Corpuscular Volume 94.3 fL (78.0-102.0); Nucleated Red Blood Cells Absolute Auto 0.00 K/mm3 (0.00-0.00); Nucleated Red Blood Cells Perc 0.0 % (0-0.0); Platelet Count Result 415 K/mm3 (150-420); Red Blood Count 4.05 M/mm3 (4.20-5.40); White Blood Count 9.8 K/mm3 (4.8-10.8)
[2025-04-14 18:20] LABS: INR 0.9; Partial Thromboplastin Time 27.9 Sec (23.9-30.70); Prothrombin Time 10.3 Seconds (9.50-12.1)
[2025-04-14 18:22] LABS: Alanine Aminotransferase 20 U/L (6-35); Albumin Level 4.4 g/dL (3.5-5.1); Alkaline Phosphatase 70 U/L (38-126); Anion Gap 7 mmol/L (4-12); Aspartate Amino Transferase 19 U/L (14-36); Bilirubin,Total 1.1 mg/dL (0.2-1.3); Blood Urea Nitrogen 16 mg/dL (7-17); Calcium 9.6 mg/dL (8.4-10.2); Carbon Dioxide 27 mmol/L (22-30); Chloride 108 mmol/L (98-107); Estimated Glomerular Filt Rate > 60; Glucose 93 mg/dL (65-110); Osmolality Calculated 295 mOsm/kg (285-295); Potassium 4.1 mmol/L (3.4-5.0); Sodium 142 mmol/L (137-145); Total Protein 7.0 g/dL (6.3-8.2)
[2025-04-14 18:26] LABS: Add Urine Microscopic? NO; Appearance Urine Clear (Clear); Glucose Urine UA Negative (Negative); Leukocyte Esterase Ur Negative (Negative); Nitrate Urine Negative (Negative); Specific Grav Ur 1.020 (1.010-1.020)
[2025-04-14 19:12] LABS: MRSA (PCR) NOT DETECTED (NOT DETECTE)
== END 2025-04-14 17:37 | disposition home or self-care (01) ==
LOC: CHSIMG 17:40 → CHSLAB 17:58
PROVIDERS: PCP Family Medicine; Visit Provider Nurse Practitioner Family
DX: Z01.818 Encounter for other preprocedural examination (principal); M47.816 Spondylosis without myelopathy or radiculopathy, lumbar region
CPT/HCPCS: 36415; 71046; 80053; 81003; 85025; 85027; 85610; 85730; 87641

== ENCOUNTER 2025-04-15 12:14 | Outpatient (CLI) | payer OTHER, SELFPAY ==
--- OUTSIDE RECORDS SUMMARY | 2018-02-13 09:30 | XMS_ITS | Continuity of Care Document ---
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 Name Role Phone Natalia Farnsworth MD Unavailable Unavailable Allergies, Adverse Reactions, Alerts Substance Reaction Status Criticality PROMETHAZINE HCL Active No Informat ion Medications Medication Instructions Dosage Effective Dates (start - stop) Status Comments Topamax 50 mg tablet - Active Topamax 100 mg tablet - Active trazodone 50 mg tablet take 1 tablet by oral route every day at bedtime as needed - Active baclofen 20 mg tablet take 1 tablet by o ral route 4 times every day 20 MG - Active ibuprofen 800 mg tablet take 1 tablet by oral route 3 times every day with food 800 MG - Active Procedures Procedure Date DISABILITY EXAMINATION Advance Directives Directive Yes / No Effective Date File Name No Information Encounters Encounter Description Practice Location Reason(s) For Visit Diagnoses Date Provider Providers Copied on Encounter DISABILITY EXAMINATION [facility], [address], [place], [address], tel:[phone] [facility] INDIRA MIGUEL HANDS 05/05/17 (chief complaint) Body mass index (BMI) 29.0-29.9, adultLeft carpal tunnel syndromeRight carpal tunnel syndrome 8 Daja Fisher. [address] [place], [place], [id number] . tel:[phone] Family History Family Member Type Diagnosis Age At Onset Son Problem (finding) Alive and well Payers Payer name Insurance type Covered democrat ID Authoriza tion(s) No Information Social History Type Description Quantity Date Captured Comments Alcohol Use Details Unknown Caffeine Use Details Unknown Tobacco Use Status Current non-smoker 18 Smoking Status Never smoker Non-Smoking Tobacco Use Details : No Details Available : No Details Available Sex Female Vital Signs Date / Time: Height Weight BMI Pulse Rate Blood Pressure Temperature Respiratory Rate Body Surface Area Head Circumference Head Circ. Percentile Wt./Dung. Percentile BMI percentile Pulse Ox Inhaled Ox 4:18 PM 67.00 in 85.275 kg (188.00 lbs) 29.4 4 kg/m eter (2) 134/88 mm[Hg] Chief Complaint And Reason For Visit From encounter dated '02/13/2018 15:30'. [facility] INDIRA MIGUEL HANDS 05/05/17 (chief complaint) Reason For Referral Reason For Referral No Information History Of Present Illness Encounter Date Complaint History Of Prese nt Illness [facility] INDIRA MIGUEL HANDS 05/05/17 Functional Status Date Functional Assessmen t No Information Instructions Date Instruction Additional Infor mation Activity as tolerated. Related t o Left carpal tunnel syndrome Ice as needed. Related to Left carpal tunnel syndrome Apply ice or heat as tolerated. Related to Left carpal tunnel syndrome Apply ice as instructed. Related to Left carpal tunnel syndrome Assessments Type Assessment Date assessment Body mass index (BMI) 29.0-29.9, adult assessment Left carpal tunnel syndrome assessment Right carpal tunnel syndrome Feb Patient Care Teams Name Effective Dates (start - stop) Status Members No Information
--- NOTE | 2025-04-15 12:18 | ECG_ITS ---
Test Date: 2025-04-15 12:24:09 Measurements Intervals [place] Rate: 73 P: 72 AL: 162 QRS: 91 QRSD: 81 T: 58 QT: 408 QTc: 451 Interpretive Statements SINUS RHYTHM BORDERLINE RIGHT AXIS DEVIATION [QRS AXIS > 90] No previous ECG available for comparison Electronically Signed On 04-15-2025 18:09:40 DATA INTEGRITY CONSULTANT by Faby Mcnamara M.D.
--- OUTSIDE RECORDS SUMMARY | 2025-04-15 12:23 | XMS_ITS | Clinical Summary ---
Author Organization [facility] Care Team Providers Care Sole Stapler Welt Name Role Phone Unavailable Primary Care Provider Unavailabl e Social History Tobacco Use Types Packs/Day Years Used Date Smoking Tobacco: Never Assessed Comments Unknown Sex and Gender Information Value Date Recorded Sex Assigned at Not on file Legal Sex Female 12:01 PM CIRCUIT MANAGER Gender Identity Not on file Sexual Orientation [...]
--- OUTSIDE RECORDS SUMMARY | 2025-04-15 12:23 | XMS_ITS | Clinical Summary ---
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 10/11/2012 Encounters Date Type Department Care Team Description 03/21/2025 2:15 PM CDT - 03/21/2025 11:59 PM CDT Hospital Encounter [facility] - Imaging [address] [place] [address] Other abnormal and inconclusive findings on diagnostic imaging of breast Discharge Disposition: Discharge to home or self care 03/21/2025 2:15 PM CDT - 03/21/2025 11:59 PM CDT Hospital Encounter [facility] - Imaging [address] [place] [address] Other abnormal and inconclusive findings on diagnostic imaging of breast Discharge Disposition: Discharge to home or self care 02/13/2025 8:20 AM CDT Lab [facility] [address] [place] [address] [address] [place] [address] Rheumatoid arthritis with negative rheumatoid factor, involving unspecified site (HCC); Leukocytosis, unspecified type 02/13/2025 8:00 AM CDT Office Visit [facility] Medicine Rheumatology [address] [place] [address] Alia Benjamin NP Rheumatoid arthritis with negative [...] on file Legal Sex Female 1:20 AM CHEMICAL LABORATORY CHIEF Gender Identity Female 07/16/2024 8:49 AM CHEMICAL LABORATORY CHIEF Sexual Orientation Choose not to disclose 2024 8:49 AM CHEMICAL LABORATORY CHIEF Obstetrics History Para Term AB IAB SAB [...] this topic Medical Devices Implanted Type Area Associate Vice President Device Identifier Shelf Expiration Date Model / Serial / Lot [employer] Peripheral [employer]omark Ultracor Bard 14ga 10cm Rigid Needle 1 Microfiber Pad [id number] - [id number] Implanted:Qty: 1 on 07/31/2024 at [facility] [employer] [id number] / / Procedures Procedure Name Priority Date/Time [...] Read Routine (OP Routine) 07/19/2024 10:17 AM CHEMICAL LABORATORY CHIEF Mass of left breast, unspecified quadrant from [...] K/cumm CERNER BJ Neutrophil pct 66.3 % [facility] Comment: Interpretive Data Percent cell count reference ranges are not reported, since discordance with absolute values may lead to misinterpretation of CBC data. Current Interpretive Data was last revised on 2017. Imm gran pct 0.2 % [facility] Comment: Interpretive Data Percent cell count reference ranges are not reported, since discordance with absolute values may lead to misinterpretation of CBC data. Current Interpretive Data was last revised on 2017. Lymphocyte pct 25.0 % [facility] Comment: Interpretive Data Percent cell count reference ranges are not reported, since discordance with absolute values may lead to misinterpretation of CBC data. Current Interpretive Data was last revised on 2017. Monocyte pct 6.9 % [facility] Comment: Interpretive Data Percent cell count reference ranges are not reported, since discordance with absolute values may lead to misinterpretation of CBC data. Current Interpretive Data was last revised on 2017. Eosinophil pct 1.0 % [facility] Comment: Interpretive Data Percent cell count reference ranges are not reported, since discordance with absolute values may lead to misinterpretation of CBC data. Current Interpretive Data was last revised on 2017. Basophil pct 0.6 % [facility] Comment: Interpretive Data Percent cell count reference ranges are not reported, since discordance with absolute values may lead to misinterpretation of CBC data. Current Interpretive Data was last revised on 2017. Blood 02/13/2025 9:41 AM CDT 02/13/2025 11:12 AM CDT Alia Benjamin FINISHER [employer] LAB BLOOD ORDERABLES Final Result [facility] [address] [facility] Department [place] [address] * CBC with auto differential (02/13/2025 9:41 AM CDT) WBC 9.05 3.80 - 9.90 K/cumm Hgb 13.2 11.9 - 15.5 g/dL [facility] Hct 40.4 35.6 - 45.5 % [facility] Plt 381 150 - 400 K/cumm [facility] MPV 10.5 9.1 - 12.3 fL [facility] RBC 4.25 3.90 - 5.20 M/cumm [facility] MCV 95.1 81.3 - 96.4 fL [facility] MCH 31.1 27.1 - 33.3 pg [facility] MCHC 32.7 32.3 - 35.7 g/dL [facility] RDW CV 13.7 11.1 - 14.9 % [facility] RDW SD 47.0 35.7 - 48.1 fL [facility] NRBC abs 0.00 0.00 - 0.01 K/cumm [facility] Blood 02/13/2025 9:41 AM CDT 02/13/2025 11:12 AM CDT us Alia Benjamin NP LAB BLOOD ORDERABLES Final Result Performing Organization Address City/[facility] Co de Phone Number [facility] [email or web address] [address] * (ABNORMAL) Erythrocyte sedimentation rate (02/13/2025 9:41 AM CDT) Erythrocyte sedimentation rate 22(H) 1 - 20 mm/hr Blood 02/13/2025 9:41 AM CDT 02/13/2025 11:12 AM CDT us Alia Benjamin FINISHER [employer] LAB BLOOD ORDERABLES Final Result Performing Organization Address [facility] Co de Phone Number [facility] [email or web address] [address] * CRP (acute phase) (02/13/2025 9:41 AM CDT) Pathologist [facility] CRP 9.7 <=10.0 mg/L Blood 02/13/2025 9:41 AM CDT 02/13/2025 11:11 AM CDT us Alia Benjamin NP LAB BLOOD ORDERABLES Final Result Performing Organization Address [facility] Co de Phone Number [facility] [email or web address] [address] * SCAN - LABS (01/22/2025) us Provider Scanning Final Result * (ABNORMAL) Diagnostic Mammogram Bilateral W Gerald (07/19/2024 10:17 AM CHEMICAL LABORATORY CHIEF) Anatomical Region Laterality Modality Breast Bilateral Mammography 07/19/2024 12:2 3 PM CHEMICAL LABORATORY CHIEF Impressions 07/19/2024 12:23 PM CHEMICAL LABORATORY CHIEF 1. Palpable mass in the left breast [...] Shabana Morin M.D. Narrative 07/19/2024 12:23 PM CHEMICAL LABORATORY CHIEF EXAMINATION: BILATERAL DIGITAL DIAGNOSTIC MAMMOGRAM INCLUDING CAD [...] Most Recently Relevant to Health Maintenance Insurance [facility] CHO[employer] PLUS ANTHEM ACCESS Member Subscriber Plan / Payer (Ef fective 2018-Present) Name:Domonique Alexander Relation to Subscriber:Self Name:DOMONIQUE ALEXANDER Payer ID:[id number] ([facility]) Type:[employer] Address: [phone] ACCESS OOS [facility] CHOICE PLUS Care Teams Metal Framer Relationship Specialty Start Date End Date Chepe Paulino DO [address] [place] [address] PCP - General Family Medicine 08/08/24 Jenna Cook PA [address] [place] [id number] Physician Burglar Alarm Installer Physician Burglar Alarm Installer 03/21/22
--- OUTSIDE RECORDS SUMMARY | 2025-04-15 12:23 | XMS_ITS | Clinical Summary ---
Author Organization [facility] Address [address] [place] [address] Care Team Providers Care Humidifier Maintenance Worker Name Role Phone Unavailable Primary Care Provider [...] (06/08/2021): Added automatically from request for surgery [id number] Carpal tunnel syndrome of left wrist 04/05/2018 06/08/2021 Overview (06/08/2021): Added automatically from request for surgery [id number] Herniation of cervical inter vertebral disc without [...] 170.2 cm (5' 7) 06/08/2021 4:13 PM PIVOT END POLISHER Body Mass Index 31.11 06/08/2021 4:13 PM PIVOT END POLISHER Plan of Treatment Health Maintenance Due Date [...] HPV 2009 Mammogram Screening 2019 PHQ-2 (Physician Shiloh) 06/05/2024 COVID-19 Vaccine (3 - 2024-2 6 [...] patient's age to complete this topic Insurance [facility]
== END 2025-04-15 12:15 | disposition home or self-care (01) ==
LOC: CHSCARD 12:15
PROVIDERS: PCP Family Medicine; Visit Provider Nurse Practitioner Family
DX: Z01.818 Encounter for other preprocedural examination (principal)
CPT/HCPCS: 93005